=== PATIENT | male | born 1945 | race Caucasian/White ===

== ENCOUNTER 2023-03-25 13:18 | Emergency (ER) | payer MEDICARE, OTHER ==
[~2023-03-25] VITALS: Ht 177.8 cm; Wt 66.4 kg
[2023-03-25 15:11] VITALS: BP 171/87; PULSE 88; RESP 18; TEMP 97.1; O2SAT 99
[2023-03-25] MEDS ORDERED: CIPR-173 PO ×3 (15:26→15:28)
== END 2023-03-25 15:36 | disposition home or self-care (01) ==
LOC: ER 13:18
DX: T83.011A Breakdown (mechanical) of indwelling urethral catheter, initial encounter (principal); N39.0 Urinary tract infection, site not specified
CPT/HCPCS: 51702; 81002

== ENCOUNTER → 2023-03-25 | Outpatient (CLI) | payer MEDICARE, OTHER ==
[~2023-03-25] VITALS: Ht 177.8 cm; Wt 65.8 kg
[~2023-03-25] MED LIST: ADENOSINE 55 MG in GIVE UN-DILUTED 0 ML IV ONE; CIPR-173 PO
== END | disposition home or self-care (01) ==
LOC: XYW 11:24
PROVIDERS: ATTEND Student in an Organized Health Care Education/Training Program
DX: Z01.810 Encounter for preprocedural cardiovascular examination (principal)
CPT/HCPCS: 78452; 93017; A9500; J0153

== ENCOUNTER → 2023-04-04 | Outpatient (CLI) | payer MEDICARE, OTHER ==
[~2023-04-04] MED LIST changes: -ADENOSINE 55 MG in GIVE UN-DILUTED 0 ML IV ONE; +NIFE1TAB30 PO; +TAMS0.4C36 PO
== END | disposition home or self-care (01) ==
LOC: XYW 08:34
PROVIDERS: ATTEND Student in an Organized Health Care Education/Training Program
DX: Z01.810 Encounter for preprocedural cardiovascular examination (principal); R33.9 Retention of urine, unspecified; I11.9 Hypertensive heart disease without heart failure; I08.1 Rheumatic disorders of both mitral and tricuspid valves
CPT/HCPCS: 93306

== ENCOUNTER 2023-04-07 07:28 | Inpatient (IN) | payer MEDICARE, OTHER ==
[2023-04-05 14:56] LABS: Urine Bacteria FEW /hpf (None Seen); Urine Blood 3+ /uL (Negative); Urine Clarity Clear (Clear); Urine Color Yellow (Yellow); Urine Protein, UAD 1+ (Negative); Urine Specific Gravity 1.014 (1.001-1.035); Urine Urobilinogen Normal (Negative); Urine WBC 30 /hpf (0 - 3); Urine WBC Clumps PRESENT /hpf (None Seen); Urine pH 5.5 (5.0-8.0)
[2023-04-05 14:58] LABS: Basophils # (auto) 0 10 ^3/uL (0-0.2); Basophils % (auto) 0.6 % (0.0-2.0); Eosinophils # (auto) 0 10 ^3/uL (0-0.8); Eosinophils % (auto) 0.6 % (0.0-7.0); Hematocrit 38.3 % (41.0-53.0); Hemoglobin 12.5 g/dL (13.5-17.5); Lymphocytes # (auto) 0.7 10 ^3/uL (0.4-5.4); Lymphocytes % (auto) 17.6 % (10.0-50.0); Mean Corpuscular Hemoglobin 31.9 pg (28.0-32.0); Mean Corpuscular Hgb Conc. 32.7 g/dL (32.0-36.0); Mean Corpuscular Volume 97.6 fL (80.0-100.0); Monocytes # (auto) 0.3 10 ^3/uL (0-1.3); Monocytes % (auto) 7.2 % (0.0-12.0); Neutrophils # (auto) 2.9 10 ^3/uL (1.6-8.6); Nucleated Red Blood Cells % 0.1 %; Red Blood Cells 3.93 10^6/uL (4.5-5.90); Red Cell Distribution Width 15.7 % (11.8-14.3); White Blood Cell 3.9 10^3/uL (4.4-10.8)
[2023-04-05 15:04] LABS: INR 1.09 (0.9-1.15); Partial Thromboplastin Time 27.3 SEC (24.5-34.5); Prothrombin Time 11.4 sec (9.3-11.8)
[2023-04-05 15:23] LABS: Potassium 3.8 mmol/L (3.5-5.1)
[2023-04-05 15:31] LABS: Albumin 3.5 g/dL (3.4-5.0); BUN/Creatinine Ratio 13.7 (10.0-20.0); Bilirubin, Total 0.3 mg/dL (0.2-1.0); Calcium 8.7 mg/dL (8.5-10.1); Total Protein 6.8 g/dL (6.4-8.2)
[~2023-04-07] VITALS: Ht 172.7 cm; Wt 68.3 kg
[2023-04-07] MEDS ORDERED: CIPROFLOXACIN 400MG/200ML 200 ML IV ONE (07:41)
[2023-04-07] MEDS ORDERED: fentaNYL CITRATE 100 MCG/2 ML VL ONE (09:11)
[2023-04-07] MEDS ORDERED: MIDAZOLAM HCL 2MG/2ML 2ml VIAL (1mg/ml) ONE (09:12)
[2023-04-07] MEDS ORDERED: LIDOCAINE 2% (LOCAL ANESTH.) PF 5ml SDV ONE (09:13)
[2023-04-07] MEDS ORDERED: ONDANSETRON HCL 4 MG/2 ML VIAL ONE (09:13)
[2023-04-07] MEDS ORDERED: PROPOFOL 10 MG/ML 20 ML IV ONE (09:13)
[2023-04-07] MEDS ORDERED: ONDANSETRON HCL 4 MG/2 ML VIAL IV PRN (10:15)
[2023-04-07] MEDS ORDERED: HYDROmorphone HCL 2 MG/ML VL/or syr IV PRN ×2 (10:15)
[2023-04-07] MEDS ORDERED: GLYCOPYRROLATE 0.2 MG/ML 1ML VIAL ONE (10:36)
[2023-04-07] MEDS ORDERED: NEOSTIGMINE 1 MG/ML INJ (10mg/10ML VIAL) ONE (10:36)
[2023-04-07 10:55] VITALS: PULSE 66; RESP 18; O2SAT 100
[2023-04-07 11:30] VITALS: PULSE 55; RESP 11; O2SAT 94
[2023-04-07] MEDS ORDERED: NITROGLYCERIN 0.4 MG SL TAB SL PRN (12:30)
[2023-04-07] MEDS ORDERED: MORPHINE SULFATE INJ 2 MG/ml SYRG IV PRN (12:30)
[2023-04-07 13:30] VITALS: BP 124/64; PULSE 66; RESP 18; TEMP 97.6; O2SAT 95
[2023-04-07] MEDS ORDERED: ROCURONIUM 10MG/ML 10ML VIAL IV ONE (15:59)
[2023-04-07] MEDS ORDERED: SUCCINYLCHOLINE CHLORIDE 20 MG/ML 10ML VIAL IV ONE (15:59)
[2023-04-07 16:15] VITALS: BP 120/63; PULSE 68; RESP 20; TEMP 97.7; O2SAT 97
[2023-04-07 20:00] VITALS: RESP 18; O2SAT 100
[2023-04-07 21:46] VITALS: BP 134/59; PULSE 70; RESP 18; TEMP 97.9; O2SAT 100
[2023-04-08] VITALS (7 sets, daily range): BP systolic 124–160; BP diastolic 65–75; PULSE 58–64; RESP 16–99; TEMP 97.5–98.6; O2SAT 92–100
[2023-04-09] VITALS (7 sets, daily range): BP systolic 124–152; BP diastolic 61–75; PULSE 68–72; RESP 16–19; TEMP 97.6–98.6; O2SAT 95–100
[2023-04-10] VITALS (7 sets, daily range): BP systolic 121–139; BP diastolic 69–89; PULSE 67–76; RESP 16–20; TEMP 98.1–98.6; O2SAT 95–100
[2023-04-10 04:49] LABS: Basophils # (auto) 0 10 ^3/uL (0-0.2); Basophils % (auto) 0.4 % (0.0-2.0); Eosinophils # (auto) 0.1 10 ^3/uL (0-0.8); Eosinophils % (auto) 1.6 % (0.0-7.0); Hematocrit 33.9 % (41.0-53.0); Hemoglobin 11.1 g/dL (13.5-17.5); Lymphocytes # (auto) 0.9 10 ^3/uL (0.4-5.4); Lymphocytes % (auto) 17.9 % (10.0-50.0); Mean Corpuscular Hemoglobin 31.8 pg (28.0-32.0); Mean Corpuscular Hgb Conc. 32.8 g/dL (32.0-36.0); Mean Corpuscular Volume 96.8 fL (80.0-100.0); Monocytes # (auto) 0.5 10 ^3/uL (0-1.3); Monocytes % (auto) 9.5 % (0.0-12.0); Neutrophils # (auto) 3.7 10 ^3/uL (1.6-8.6); Neutrophils % (auto) 70.6 % (37.0-80.0); Nucleated Red Blood Cells % 0.1 %; Red Cell Distribution Width 15.5 % (11.8-14.3); White Blood Cell 5.2 10^3/uL (4.4-10.8)
[2023-04-10 04:58] LABS: Potassium 4.2 mmol/L (3.5-5.1)
[2023-04-10 05:04] LABS: Albumin 2.7 g/dL (3.4-5.0); BUN/Creatinine Ratio 17.2 (10.0-20.0); Bilirubin, Total 0.3 mg/dL (0.2-1.0); Calcium 8.5 mg/dL (8.5-10.1); Total Protein 5.5 g/dL (6.4-8.2)
[2023-04-10] MEDS ORDERED: LACTULOSE 20Gm/30ML SOLN PO ONE (18:30)
[2023-04-11 05:00] VITALS: BP 139/74; PULSE 84; RESP 17; TEMP 98.2; O2SAT 95
[2023-04-11 08:45] VITALS: BP_SYST 136; BP_SYST 140; BP_DIAS 69; BP_DIAS 77; PULSE 75; PULSE 76; RESP 19; RESP 20; TEMP 98.1; TEMP 98.3; O2SAT 97; O2SAT 98
[2023-04-11] MEDS ORDERED: NITROGLYCERIN 0.4 MG SL TAB SL PRN (10:45)
[2023-04-11] MEDS ORDERED: MORPHINE SULFATE INJ 2 MG/ml SYRG IV PRN (10:45)
[2023-04-11 13:00] VITALS: BP 143/65; PULSE 71; RESP 20; TEMP 97.9; O2SAT 96
== END 2023-04-11 16:00 | disposition home or self-care (01) | DRG 714 ==
LOC: SUR 07:28 → OVERFLOW 12:23 → UNDOADMOB 12:25 → OVERFLOW 13:25 → WEST WING 13:25 → INTOOBSV 04-11 10:45 → OBSVTOIN 04-11 10:45 → UNDODISIN 04-11 16:00
PROVIDERS: ADMIT Urology; ATTEND Urology
PROC: 0VB08ZX Excision of Prostate, Via Natural or Artificial Opening Endoscopic, Diagnostic (ICD-10-PCS; 2023-04-07)
PROC: 0VT08ZZ Resection of Prostate, Via Natural or Artificial Opening Endoscopic (ICD-10-PCS; principal; 2023-04-07 09:10)
DX: C61 Malignant neoplasm of prostate (principal); N40.1 Benign prostatic hyperplasia with lower urinary tract symptoms; R33.8 Other retention of urine; N20.0 Calculus of kidney; K86.9 Disease of pancreas, unspecified; N28.1 Cyst of kidney, acquired; Z85.46 Personal history of malignant neoplasm of prostate
CPT/HCPCS: 36415; 74176; 78306; 80053; 81001; 85025; 85610; 85730; 87086; G0378; J2001; J2250; J2405; J2704

== ENCOUNTER → 2023-09-06 | Outpatient (CLI) | payer MEDICARE, OTHER ==
[2023-09-06 14:02] LABS: Basophils # (auto) 0 10 ^3/uL (0-0.2); Basophils % (auto) 0.4 % (0.0-2.0); Eosinophils # (auto) 0.1 10 ^3/uL (0-0.8); Eosinophils % (auto) 2.3 % (0.0-7.0); Hematocrit 35.8 % (41.0-53.0); Hemoglobin 11.9 g/dL (13.5-17.5); Lymphocytes # (auto) 0.6 10 ^3/uL (0.4-5.4); Lymphocytes % (auto) 18.2 % (10.0-50.0); Mean Corpuscular Hemoglobin 32.5 pg (28.0-32.0); Mean Corpuscular Hgb Conc. 33.3 g/dL (32.0-36.0); Mean Corpuscular Volume 97.5 fL (80.0-100.0); Monocytes # (auto) 0.4 10 ^3/uL (0-1.3); Monocytes % (auto) 10.3 % (0.0-12.0); Neutrophils # (auto) 2.4 10 ^3/uL (1.6-8.6); Neutrophils % (auto) 68.8 % (37.0-80.0); Red Blood Cells 3.67 10^6/uL (4.5-5.90); Red Cell Distribution Width 14.7 % (11.8-14.3); White Blood Cell 3.5 10^3/uL (4.4-10.8)
[2023-09-06 14:22] LABS: Alanine Aminotransferase 12 U/L (7-40); Alkaline Phosphatase 68 U/L (46-116); Anion Gap 8 (5-15); Aspartate Aminotransferase 14 U/L (13-40); BUN/Creatinine Ratio 14.9 (10.0-20.0); Blood Urea Nitrogen 18 mg/dL (9-23); Calcium 9.7 mg/dL (8.5-10.1); Carbon Dioxide 23 mmol/L (20-30); Chloride 108 mmol/L (98-107); Glucose 91 mg/dL (74-106); LDL Cholesterol 114 mg/dL (< 100); Potassium 4.1 mmol/L (3.5-5.1); Sodium 139 mmol/L (136-145); Triglycerides 193 mg/dL (< 150)
[2023-09-06 14:23] LABS: Albumin 4.4 g/dL (3.2-4.8); Bilirubin, Total 0.5 mg/dL (0.2-1.0); Cholesterol 195 mg/dL (< 200); HDL Cholesterol 50 mg/dL (40-59)
== END | disposition home or self-care (01) ==
LOC: LAB 13:47
PROVIDERS: ATTEND Internal Medicine
DX: C25.9 Malignant neoplasm of pancreas, unspecified (principal); I10 Essential (primary) hypertension; Z79.899 Other long term (current) drug therapy
CPT/HCPCS: 36415; 80053; 80061; 83036; 85025

== ENCOUNTER → 2023-10-24 | Outpatient (CLI) | payer MEDICARE, OTHER ==
[2023-10-24 10:40] LABS: Basophils # (auto) 0 10 ^3/uL (0-0.2); Basophils % (auto) 0.3 % (0.0-2.0); Eosinophils # (auto) 0.1 10 ^3/uL (0-0.8); Eosinophils % (auto) 2.2 % (0.0-7.0); Hematocrit 35.7 % (41.0-53.0); Hemoglobin 11.8 g/dL (13.5-17.5); Lymphocytes # (auto) 0.6 10 ^3/uL (0.4-5.4); Lymphocytes % (auto) 19.6 % (10.0-50.0); Mean Corpuscular Hemoglobin 33.2 pg (28.0-32.0); Mean Corpuscular Hgb Conc. 33.2 g/dL (32.0-36.0); Mean Corpuscular Volume 100.2 fL (80.0-100.0); Monocytes # (auto) 0.4 10 ^3/uL (0-1.3); Monocytes % (auto) 11.5 % (0.0-12.0); Neutrophils # (auto) 2.2 10 ^3/uL (1.6-8.6); Neutrophils % (auto) 66.4 % (37.0-80.0); Nucleated Red Blood Cells % 0.1 %; Red Blood Cells 3.56 10^6/uL (4.5-5.90); Red Cell Distribution Width 15.3 % (11.8-14.3); White Blood Cell 3.3 10^3/uL (4.4-10.8)
== END | disposition home or self-care (01) ==
LOC: LAB 10:06
PROVIDERS: ATTEND Internal Medicine
DX: C61 Malignant neoplasm of prostate (principal); D64.9 Anemia, unspecified; I10 Essential (primary) hypertension; Z79.899 Other long term (current) drug therapy
CPT/HCPCS: 36415; 82306; 82607; 85025

== ENCOUNTER → 2023-12-23 | Outpatient (CLI) | payer MEDICARE, OTHER ==
[2023-12-23 14:07] LABS: Chloride 112 mmol/L (98-107); Potassium 4.4 mmol/L (3.5-5.1); Sodium 142 mmol/L (136-145)
[2023-12-23 14:08] LABS: Anion Gap 6 (5-15); Carbon Dioxide 24 mmol/L (20-30)
[2023-12-23 14:09] LABS: Calcium 10.1 mg/dL (8.7-10.4)
[2023-12-23 14:13] LABS: Glucose 98 mg/dL (74-106)
[2023-12-23 14:55] LABS: BUN/Creatinine Ratio 19.6 (10.0-20.0); Blood Urea Nitrogen 28 mg/dL (9-23)
== END | disposition home or self-care (01) ==
LOC: LAB 13:28
PROVIDERS: ATTEND Internal Medicine
DX: E55.9 Vitamin D deficiency, unspecified (principal); E53.8 Deficiency of other specified B group vitamins
CPT/HCPCS: 36415; 80048

== ENCOUNTER → 2024-02-27 | Outpatient (CLI) | payer MEDICARE, OTHER ==
[2024-02-27 13:54] LABS: Basophils # (auto) 0 10 ^3/uL (0-0.2); Basophils % (auto) 0.5 % (0.0-2.0); Eosinophils # (auto) 0.1 10 ^3/uL (0-0.8); Eosinophils % (auto) 1.6 % (0.0-7.0); Hematocrit 36.1 % (41.0-53.0); Hemoglobin 11.9 g/dL (13.5-17.5); Lymphocytes # (auto) 0.8 10 ^3/uL (0.4-5.4); Lymphocytes % (auto) 18.7 % (10.0-50.0); Mean Corpuscular Hemoglobin 32.7 pg (28.0-32.0); Mean Corpuscular Hgb Conc. 33.1 g/dL (32.0-36.0); Mean Corpuscular Volume 98.7 fL (80.0-100.0); Monocytes # (auto) 0.4 10 ^3/uL (0-1.3); Monocytes % (auto) 9.4 % (0.0-12.0); Neutrophils % (auto) 69.8 % (37.0-80.0); Nucleated Red Blood Cells % 0.1 %; Red Blood Cells 3.66 10^6/uL (4.5-5.90); Red Cell Distribution Width 15.1 % (11.8-14.3); White Blood Cell 4.3 10^3/uL (4.4-10.8)
[2024-02-27 15:32] LABS: Triglycerides 244 mg/dL (< 150)
[2024-02-27 15:33] LABS: LDL Cholesterol 156 mg/dL (< 100)
[2024-02-27 15:34] LABS: Cholesterol 243 mg/dL (< 200); HDL Cholesterol 44 mg/dL (40-59)
[2024-02-27 15:37] LABS: Folate (Folic Acid) 12.22 ng/mL (>5.38)
== END | disposition home or self-care (01) ==
LOC: LAB 13:35
PROVIDERS: ATTEND Internal Medicine
DX: E55.9 Vitamin D deficiency, unspecified (principal); E53.8 Deficiency of other specified B group vitamins; C61 Malignant neoplasm of prostate; I10 Essential (primary) hypertension
CPT/HCPCS: 36415; 80061; 82306; 82607; 82746; 85025

== ENCOUNTER → 2024-04-10 | Outpatient (CLI) | payer MEDICARE, OTHER ==
[~2024-04-10] MED LIST changes: -TAMS0.4C36 PO; +TAMS0.4C39 PO
[2024-04-10 13:02] LABS: Albumin 4.4 g/dL (3.2-4.8); Bilirubin, Direct 0.1 mg/dL (<0.3); Bilirubin, Total 0.3 mg/dL (0.2-1.0); Total Protein 7.1 g/dL (5.7-8.2)
== END | disposition home or self-care (01) ==
LOC: LAB 12:21
PROVIDERS: ATTEND Internal Medicine
DX: E78.5 Hyperlipidemia, unspecified (principal)
CPT/HCPCS: 36415; 80076

== ENCOUNTER 2025-02-04 14:55 | Emergency (ER) | payer MEDICARE, OTHER ==
[~2025-02-04] VITALS: Ht 177.8 cm; Wt 77.2 kg
--- NOTE | 2025-02-04 15:30 | DVH ---
CHEST RADIOGRAPH Indication: aloc Technique: Single frontal view of the chest was obtained COMPARISON: None FINDINGS: Lines and Tubes: None Lungs: Clear Pleura: No effusion. No pneumothorax. Cardiomediastinal contours: Unremarkable Bones: Unremarkable IMPRESSION: No acute disease.
[2025-02-04 15:31] VITALS: PULSE 82; RESP 19; O2SAT 97
--- NOTE | 2025-02-04 15:42 | DVH ---
EXAM: CT STROKE CTH HISTORY: aloc COMPARISON: None TECHNIQUE: Axial images of the head were obtained and reformatted in coronal and sagittal planes. All CT scans at this medical facility are performed using dose modulation techniques as appropriate t o a performed exam including the following: Automated exposure control was utilized; adjustment of th e MA and/or KV according to patient size; and use of iterative reconstruction technique. CT Dose: CTDI volume is 52.43 mGy. Dose-length product is 928.47 mGy*cm FINDINGS: There is no evidence of acute intracranial hemorrhage, mass, mass effect midline shift. There is no h ydrocephalus or extra-axial fluid collection. There are patchy chronic microvascular ischemic changes in the supratentorial white matter. There are small chronic lacunar infarcts in the bilateral basal ganglia. Savage-white matter differentiation otherwise appears maintained. Complete opacification of the right maxillary sinus. There is mucosal thickening throughout the jessica ining paranasal sinuses. Mastoid air cells are clear. The calvarium is intact. IMPRESSION: 1. No acute intracranial process. HS:Y
[2025-02-04] MEDS: IOHEXOL 350 MG/ML 100ML IJ ONE (15:56)
--- NOTE | 2025-02-04 16:10 | DVH ---
EXAM: CT ANGIO HEAD/NECK DATE OF SERVICE: 02/04/2025 03:14 PM ORDERING PHYSICIAN: LEW NELSON REASON FOR EXAM: ams TECHNIQUE: CTA of the brain and neck was performed after the administration of contrast . Axial imag es of the head and neck are obtained. Coronal and sagittal images were then reformatted for review. M IP reformats were obtained and reviewed. COMPARISON: None FINDINGS: FINDINGS: The right common carotid artery demonstrates no high-grade stenosis. Right internal carotid artery demonstrates no high-grade stenosis. Right middle cerebral artery demonstrates mild stenosis of the M1 segment, less than 50% stenosis. The right anterior cerebral artery demonstrates no high-grade stenosis. The left common carotid artery demonstrates no high-grade stenosis. Left internal carotid artery demonstrates no high-grade stenosis. The left middle cerebral artery demonstrates mild stenosis of the M1 segment, less than 50% stenosis. The left anterior cerebral artery demonstrates no high-grade stenosis. The right vertebral artery demonstrates no high-grade stenosis. The left vertebral artery demonstrates no high-grade stenosis. Basilar artery demonstrates no high-grade stenosis. The bilateral posterior cerebral arteries demonstrate no high-grade stenosis. Right upper lobe pulmonary airspace consolidation/ nodular disease measuring up to 11 mm. Ethmoid, bilateral maxillary and sphenoid sinus disease most pronounced within the right maxillary si nus. Hyperdense contents may represent inspissated secretions, fungal etiologies. Moderate cervical degenerative disc disease. IMPRESSION: Less than 50% stenoses of the bilateral middle cerebral artery M1 segments. Right upper lobe pulmonary consolidation/nodular airspace disease with nodules measuring up to 11 mm. Follow-up to resolution to exclude malignancy/ metastatic disease. Paranasal sinus disease.
[2025-02-04 16:28] LABS: Alanine Aminotransferase 10 U/L (7-40); Albumin 3.7 g/dL (3.2-4.8); Alkaline Phosphatase 89 U/L (46-116); Anion Gap 17 (5-15); BUN/Creatinine Ratio 17.5 (10.0-20.0); Bilirubin, Total 0.7 mg/dL (0.2-1.0); Potassium 4.5 mmol/L (3.5-5.1); Total Protein 6.3 g/dL (5.7-8.2)
[2025-02-04 16:31] LABS: Aspartate Aminotransferase 36 U/L (<34); Blood Urea Nitrogen 31 mg/dL (9-23); Carbon Dioxide 14 mmol/L (20-31); Chloride 114 mmol/L (98-107); Glucose 152 mg/dL (74-106); Magnesium 2.8 mg/dL (1.6-2.6); Sodium 145 mmol/L (136-145)
--- NOTE | 2025-02-04 16:48 | BSKYNEURO ---
[facility] Note # Demographics Consult Type: Acute Stroke Level 1 (0-4.5 hrs) Patient Location: Emergency Room First Name: uli Last Name: caesar Date of : 1945 Age: 79 Gender: Male Facility: [facility] Time of Initial Page (): 02/04/2025 15:06 Time of Return Call (): 02/04/2025 15:07 # HPI History: LKN- 4 days ago. Patient is coming to the ER for confusion started four days ago. He was noted to have slurred speech and tried shared weakness while in the ER. # Scores Time of exam and NIHSS (): 02/04/2025 15:36 Level of Consciousness 1a: [0] = Alert; keenly responsive LOC Questions 1b: [1] = Answers one correctly LOC Commands 1c: [0] = Performs both tasks correctly Best Gaze 2: [0] = Normal Visual 3: [0] = No visual loss Facial Palsy 4: [0] = Normal symmetrical movements Motor Arm Left 5a: [1] = Drift Motor Arm Right 5b: [1] = Drift Motor Leg Left 6a: [0] = No drift Motor Leg Right 6b: [2] = Some effort against gravity Limb Ataxia 7: [0] = Absent Sensory 8: [0] = Normal Best Language 9: [0] = No aphasia Dysarthria 10: [1] = [id number] dysarthria Extinction and Inattention 11: [0] = No abnormality NIHSS Total: 6 # Assessment Impression: - Altered Mental Status - Stroke Mimic Patient looks encephalopathic; likely metabolic/infectious. If no other obvious cause of encephalopathy and patient is not improving, will need MRI brain w/o contrast and EEG # Plan Thrombolytic/Intervention: NOT IV Thrombolysis or IA Intervention candidate Thrombolytic Exclusion: > 4.5 hours Intraarterial Exclusion: - no large vessel occlusion (LVO) Thrombolytic/Intraarterial Exclusion: - IV thrombolytic and IA intervention considered but not recommended as this patient's symptoms are not clinically consistent with an assumed diagnosis of stroke Labs: - Ammonia - urine drug screen - ua - CBC - comprehensive metabolic panel - ESR - ABG Imaging: (urgency: routine): - MRI Brain without contrast Diagnostic Test: - EEG Other: - If patient has any neurological deterioration please call me back immediately - I have discussed my recommendations with the referring provider - would not pursue stroke work-up if MRI is negative - telemetry monitoring Disposition: admit # Logistics Attestation of consult completion: The patient is located at: [facility]. Facility staff participated in the visit. I performed this telemedicine visit from my offsite office utilizing interactive 2 way audio and visual telecommunication technology. Total time spent in telemedicine encounter: I spent 20 minutes reviewing clinical data and/or imaging, obtaining history, examining the patient, communicating with the onsite care team, and in preparation of this report. # Demographics First Name: uli Last Name: caesar Facility: [facility] Yes PILO LEE MD Feb 04, 2025 16:48
[2025-02-04] MEDS: SODIUM CHLORIDE 0.9% 1,000 ML IV ONE (17:08)
[2025-02-04] MEDS: VANCOMYCIN 1GM/200ML PM 200 ML IV ONE (17:11)
[2025-02-04] MEDS: CEFEPIME 2GM/50ML NS 50 ML IV ONE (18:17)
[2025-02-04 19:19] LABS: Lactic Acid w/Reflex 4.4 mmol/L (0.4-2.0)
[2025-02-04 19:34] LABS: Hematocrit 13.3 % (41.0-53.0); Mean Corpuscular Hemoglobin 31.1 pg (28.0-32.0); Mean Corpuscular Hgb Conc. 29.2 g/dL (32.0-36.0); Mean Corpuscular Volume 106.2 fL (80.0-100.0); Red Blood Cells 1.25 10^6/uL (4.5-5.90); Red Cell Distribution Width 18.3 % (11.8-14.3)
[2025-02-04 19:39] VITALS: PULSE 75; O2SAT 100
[2025-02-04 19:42] LABS: Platelet Count (auto) 8 10^3/uL (140-450)
[2025-02-04 19:44] LABS: Hemoglobin 3.9 g/dL (13.5-17.5)
[2025-02-04 19:46] LABS: Basophils % (manual) 0 (0.0-2.0); Eosinophils % (manual) 0 (0-7); Metamyelocytes % 0; Myelocytes % 0; Promyelocytes % 0
--- NOTE | 2025-02-04 20:54 | DVHINCON2 ---
Date of service: Feb 04, [address] Crawford Reason for Consultation Slurred speech History of Present Illness Mr. Griggs is a 79 years old gentleman with a history of hypertension, BPH, prostate cancer, left kidney cancer, nephrectomy, pancreatic mass lesion, hematuria, the patient was brought to the [facility] on 02/04/2025 with a chief company of general weakness, altered mental status. 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 After long time spent with her, I have obtained the following information Apparently, his problem started about two weeks ago, when he started to have bloody urine which stopped about six days before He also complained of thirsty at home, he complaint the room was heat, he had poor appetite, especially he only ate minimal amount of food in the lasts a few days. He used to drink a lot of water but not in the last three days He had a lot of diarrhea at home, he had dizziness/lightheadedness when he was off bed Today his noticed purplish in the bilateral toes His relates the patient was not mentally altered at home, but he did not listen to/was not cooperative with her when she advised him to seek medical attention. [facility] consultation, 02/04/2025: The patient was not candidate of IV thrombolysis or IA interventional treatment Dr. Stuart Hodge is his urologist [phone] WBC/HB/PLT/MCV, 02/04/2025: 81/3.9/8/106.2 PT/INR/PTT, 02/04/2025: HCO3, 02/04/2025:14 Anion gap, 02/04/2025: 17 Lactic acid, 02/04/2025: 4.4, 2.9 BUN/CR, 02/04/2025: 31/1.77 TBI/AST/ALT/AP, 02/04/2025: 0.7/36/10/89 Troponin one high sensitivity, 02/04/2025: 218 TG/HDL/LDL/HDL, 02/2024: 244/2043/156/44 CT head, 02/04/2025: No acute intracranial process CTA head, neck, 02/04/2025: Less than 50% stenoses of the bilateral middle cerebral artery M1 segments. Right upper lobe pulmonary consolidation/nodular airspace disease with nodules measuring up to 11 mm. Follow-up to resolution to exclude malignancy/ metastatic disease. Past Medical History Hypertension, BPH, prostate cancer, left kidney cancer status post nephrectomy, pancreatic mass lesion, hematuria Past Surgical History Left Nephrectomy Family History: FH: brain tumor G8 FATHER Family History is not aware of his family history, the chart mentioned brain tumor Social History He used to chew tobacco, but no history of drug or alcohol abuse Allergies: Coded Allergies: NO KNOWN ALLERGIES (Unverified , 03/25/23) Home Meds Active Scripts Ciprofloxacin Hcl (Cipro) 500 Mg Tab, 1 TAB PO BID, #20 TAB Prov:LISA CLANCY 03/25/23 Reported Medications Nifedipine (Nifedipine Er) 60 Mg Tab, 60 MG PO DAILY, TAB 04/06/23 Tamsulosin Hcl (Tamsulosin Hcl) 0.4 Mg Cap, 0.4 MG PO DAILY, CAP 04/06/23 Review of Systems As above, the other systems are negative Vital Signs Vital Signs Date Time Temp Pulse Resp B/P (MAP) Pulse Ox O2 Delivery O2 Flow Rate FiO2 02/04/25 19:45 97.8 75 12 119/57 (77) 100 97.8 02/04/25 19:39 Nasal Cannula* 2 28 Physical Exam GENERAL EXAM: General: the patient is well developed and nourished. No acute distress. Very pale HEENT: Normocephalic, neck is supple, no carotid bruits. No mass. RESPIRATORY: Normal respiratory effort with symmetrical lung expansion. Lungs clear to auscultation. CARDIOVASCULAR: Regular rate and rhythm with no murmurs. S1, S2. ABDOMEN: Soft, nontender, normal bowel sound MUSCULOSKELETAL EXAM: Purplish/dark depigmentation in bilateral distal feet NEUROLOGICAL: MENTAL STATUS: He is awake, oriented x2, able to follow a little bit SPEECH, LANGUAGE, HIGHER CORTICAL FUNCTION: no aphasia but his speech is soft and weak CRANIAL NERVES: #2: Intact visual agustin to confrontation. #3,4,6: Pupils are equal, round and reactive. EOMs full and conjugate. No nystagmus. #5: Facial sensation intact in all three divisions bilaterally. Mandibular strength intact. #7: Facial muscles symmetrical and strength intact. #8: Hearing grossly normal to voice. #9,10: Deferred #11: Deferred but he is able to move the neck from [id number] #12: Deferred SENSATION: Sensation to touch and pinprick is okay MOTOR: Normal tone in the upper and lower extremity. Normal muscle bulk. No fasciculations. No abnormal movements or posturing. He moves the arm than leg a little bit REFLEXES: Deep tendon reflexes are symmetrical. No pathological reflexes. CEREBELLAR/COORDINATION: Deferred GAIT/STATION: deferred. Labs/Diagnostic Data Labs Test 02/04/25 19:17 02/04/25 18:33 02/04/25 15:54 Range/Units White Blood Count 81.0 *H 4.4-10.8 10^3/uL Red Blood Count 1.25 L 4.5-5.90 10^6/uL Hemoglobin 3.9 *L 13.5-17.5 g/dL Hematocrit 13.3 L 41.0-53.0 % Mean Corpuscular Volume 106.2 H 80.0-100.0 fL Mean Corpuscular Hemoglobin 31.1 28.0-32.0 pg Mean Corpuscular Hemoglobin Concent 29.2 L 32.0-36.0 g/dL Red Cell Distribution Width 18.3 H 11.8-14.3 % Platelet Count 8 *L 140-450 10^3/uL Mean Platelet Volume 10.5 6.9-10.8 fL Neutrophils (%) (Auto) 37.0-80.0 % Lymphocytes (%) (Auto) 10.0-50.0 % Monocytes (%) (Auto) 0.0-12.0 % Basophils (%) (Auto) 0.0-2.0 % Neutrophils # (Auto) 1.6-8.6 10 ^3/uL Lymphocytes # (Auto) 0.4-5.4 10 ^3/uL Monocytes # (Auto) 0-1.3 10 ^3/uL Lactic Acid Level 2.9 *H 0.4-2.0 mmol/L B-Type Natriuretic Peptide 307.37 0-100 pg/mL Troponin I High Sensitivity 2185 *H </=54 ng/L Sodium Level 145 136-145 mmol/L Potassium Level 4.5 3.5-5.1 mmol/L Chloride Level 114 H 98-107 mmol/L Carbon Dioxide Level 14 L 20-31 mmol/L Anion Gap 17 H 5-15 Blood Urea Nitrogen 31 H 9-23 mg/dL Creatinine 1.77 H 0.700-1.30 mg/dL Glomerular Filtration Rate Calc 39 >90 mL/min BUN/Creatinine Ratio 17.5 10.0-20.0 Serum Glucose 152 H 74-106 mg/dL Calcium Level 8.0 L 8.7-10.4 mg/dL Magnesium Level 2.8 H 1.6-2.6 mg/dL Total Bilirubin 0.7 0.2-1.0 mg/dL Aspartate Amino Transferase (AST) 36 H <34 U/L Alanine Aminotransferase (ALT) 10 7-40 U/L Alkaline Phosphatase 89 46-116 U/L Total Protein 6.3 5.7-8.2 g/dL Albumin 3.7 3.2-4.8 g/dL Assessment Altered mental status Metabolic encephalopathy Toxic encephalopathy Lactic acidosis, metabolic acidosis Sepsis, septic shock Severe leukocytosis, Sepsis Other etiology Severe macrocytic anemia Severe thrombocytopenia Diarrhea, dizziness, ? Dehydration Acute kidney failure History of kidney cancer, prostate cancer History of pancreatic mass lesion Purplish in the bilateral feet, ? Poor peripheral circulation, ? Peripheral arterial disease Plan/Recommendation Monitoring Supportive treatment Follow-up labs Urinalysis Urine culture Blood culture Iron panel Vitamin B12, folic acid, TSH Oxygen IV antibiotics Type and screening EEG Arterial Doppler to the lower extremities MRI brain scan Infectious disease Re: ? Sepsis Urology consultation Re: Prostate cancer, BPH, hematuria, history of kidney cancer Hematology/Oncology consultation Re: Sepsis, severe anemia, CBS thrombocytopenia, prostatic cancer, kidney cancer, pancreatic mass GI consultation Re: Diarrhea, anemia, rule out GI bleeding Nephrology consultation Re: Kidney failure More recommendation per clinical course Condition: Critical Prognosis: Poor Critical care time spent is 60 minutes This medical document was created using an electronic medical record system with [employer] dictation system. Although this document has been carefully reviewed, there may still be some phonetic and typographical errors. These areas are purely typographical due to imperfections of the software programs, and do not reflect any compromise in the patient's medical care. Plan discussed with: Spouse, Other REGINA LEVIN MD Feb 04, 2025 20:54
--- NOTE | 2025-02-04 20:56 | ED.PDOC ---
History of Present Illness HPI Comments 79-year-old male presents to the emergency department with generalized weakness and some confusion. EMS noted that there might be some blood in his stool Chief Complaint: General Weakness Time Seen by MD: 20:09 Primary Care Provider: UNKNOWN Allergies: Coded Allergies: NO KNOWN ALLERGIES (Unverified , 03/25/23) Home Meds Active Scripts Ciprofloxacin Hcl (Cipro) 500 Mg Tab, 1 TAB PO BID, #20 TAB Prov:LISA CLANCY 03/25/23 Reported Medications Nifedipine (Nifedipine Er) 60 Mg Tab, 60 MG PO DAILY, TAB 04/06/23 Tamsulosin Hcl (Tamsulosin Hcl) 0.4 Mg Cap, 0.4 MG PO DAILY, CAP 04/06/23 Information Source: Patient, Emergency Med Personnel Mode of Arrival: EMS Severity: Severe Timing: Days Duration: Since onset Past Medical History PAST MEDICAL HISTORY: Unknown, Pt Confused Surgical History: Unknown, Pt Confused Family History Family History: Reviewed,noncontributory to illness Social History Smoker: Non-Smoker Alcohol: Denies ETOH Use Drugs: Denies Drug Use Lives In: Home Constitutional: reports: fatigue, weakness Unable to Obtain due to: Altered Mental Status Physical Exam Exam Comments elderly , pale, appears ill General Appearance: Cachectic, Thin HEENT: Normal ENT Inspection, Pharynx Normal, TMs Normal Neck: Full Range of Motion, Non-Tender, Normal, Normal Inspection Respiratory: Chest Non-Tender, Lungs Clear, No Accessory Muscle Use, No Respiratory Distress, Normal Breath Sounds Cardiovascular: No Edema, No JVD, No Murmur, No Gallop, Normal Peripheral Pulses, Regular Rate/Rhythm Breast Exam: Deferred Gastrointestinal: No Organomegaly, Non Tender, No Pulsatile Mass, Normal Bowel Sounds, Soft Genitalia: Deferred Pelvic: Deferred Rectal: Blood streaked stool, Normal rectal tone Extremities: No calf tenderness, Normal capillary refill, Normal inspection, Normal range of motion, Non-tender, No pedal edema Musculoskeletal : Apperance: Normal Neurologic: Alert, religious studies professor II-XII nml as Tested, No Motor Deficits, Normal Affect, Normal Mood, No Sensory Deficits Cerebellar Function: Normal Reflexes: Normal Skin: Dry, Pallor Lymphatic: No Adenopathy Was a procedure done? Was a procedure done?: No Differential Dx Considerations may include: Differential diagnosis includes but is not limited to: coronary ischemia, dehydration, sepsis, electrolyte abnormality, symptomatic anemia, hypovolemia and others X-Ray, Labs, Meds, VS Vital Signs Date Time Temp Pulse Resp B/P (MAP) Pulse Ox O2 Delivery O2 Flow Rate FiO2 02/04/25 19:45 97.8 75 12 119/57 (77) 100 97.8 02/04/25 19:39 75 100 Nasal Cannula* 2 28 02/04/25 18:00 67 17 124/54 (77) 100 02/04/25 16:05 83 14 102/52 (69) 90 02/04/25 16:00 75 02/04/25 15:31 97.8 82 19 117/39 (65) 97 97.8 02/04/25 15:31 82 19 97 Room Air* 0 21 02/04/25 15:03 77 02/04/25 14:59 99.3 82 22 115/59 (77) 96 99.3 Lab Test 02/04/25 19:17 02/04/25 18:33 02/04/25 17:17 02/04/25 15:54 Range/Units White Blood Count 81.0 *H 4.4-10.8 10^3/uL Red Blood Count 1.25 L 4.5-5.90 10^6/uL Hemoglobin 3.9 *L 13.5-17.5 g/dL Hematocrit 13.3 L 41.0-53.0 % Mean Corpuscular Volume 106.2 H 80.0-100.0 fL Mean Corpuscular Hemoglobin 31.1 28.0-32.0 pg Mean Corpuscular Hemoglobin Concent 29.2 L 32.0-36.0 g/dL Red Cell Distribution Width 18.3 H 11.8-14.3 % Platelet Count 8 *L 140-450 10^3/uL Mean Platelet Volume 10.5 6.9-10.8 fL Neutrophils (%) (Auto) 37.0-80.0 % Lymphocytes (%) (Auto) 10.0-50.0 % Monocytes (%) (Auto) 0.0-12.0 % Basophils (%) (Auto) 0.0-2.0 % Neutrophils # (Auto) 1.6-8.6 10 ^3/uL Lymphocytes # (Auto) 0.4-5.4 10 ^3/uL Monocytes # (Auto) 0-1.3 10 ^3/uL Differential Total Cells Counted Pending Neutrophils % (Manual) Pending Band Neutrophils % (Manual) Pending Lymphocytes % (Manual) Pending Monocytes % (Manual) Pending Eosinophils % (Manual) Pending Basophils % (Manual) Pending Metamyelocytes % (manual) Pending Myelocytes % (Manual) Pending Promyelocytes % (Manual) Pending Blast Cells % (Manual) Pending Reactive Lymphocytes Pending Platelet Estimate Pending Prothrombin Time Pending Prothrombin Time INR Pending Activated Partial Thromboplast Time Pending Lactic Acid Level 2.9 *H 4.4 *H 0.4-2.0 mmol/L B-Type Natriuretic Peptide 307.37 0-100 pg/mL Troponin I High Sensitivity 2185 *H 2007 *H 9 *H </=54 ng/L Sodium Level 145 136-145 mmol/L Potassium Level 4.5 3.5-5.1 mmol/L Chloride Level 114 H 98-107 mmol/L Carbon Dioxide Level 14 L 20-31 mmol/L Anion Gap 17 H 5-15 Blood Urea Nitrogen 31 H 9-23 mg/dL Creatinine 1.77 H 0.700-1.30 mg/dL Glomerular Filtration Rate Calc 39 >90 mL/min BUN/Creatinine Ratio 17.5 10.0-20.0 Serum Glucose 152 H 74-106 mg/dL Calcium Level 8.0 L 8.7-10.4 mg/dL Magnesium Level 2.8 H 1.6-2.6 mg/dL Total Bilirubin 0.7 0.2-1.0 mg/dL Aspartate Amino Transferase (AST) 36 H <34 U/L Alanine Aminotransferase (ALT) 10 7-40 U/L Alkaline Phosphatase 89 46-116 U/L Total Protein 6.3 5.7-8.2 g/dL Albumin 3.7 3.2-4.8 g/dL Current Medications Medications (Trade) Dose Ordered Sig/John Route Start Time Stop Time Status Last Admin Cefepime HCl 50 ml @ 50 mls/hr ONCE ONCE IV 02/04/25 17:00 02/04/25 17:59 DC 02/04/25 18:17 Vancomycin HCl 200 ml @ 200 mls/hr ONCE ONCE IV 02/04/25 17:00 02/04/25 17:59 DC 02/04/25 17:11 Sodium Chloride 1,000 ml @ 1,000 mls/hr Q1H ONCE IV 02/04/25 17:00 02/04/25 17:59 DC 02/04/25 17:08 Time of 1ST Reevaluation: 20:47 Reevaluation 1ST: Unchanged Patient Education/Counseling: Diagnosis, Treatment Family Education/Counseling: No Family Present SEPSIS Sepsis Screen Date sepsis recognized/suspect: Feb 04, 2025 Time Sepsis recognized/suspect: 2029 Recent Procedure: No On Antibiotic Therapy: No Respiratory Rate >20: No Heart Rate >90: No Temp<36 C (96.8 F) or >38.3 C: No SBP <90 or MAP <65 mmHG: No New Acute Mental Status Change: Yes Is the patient on CPAP, BIPAP,: No Orders/Vitals/Labs Physician Orders Stroke Assessment (02/04/25 15:02) Vital Signs .PER UNIT PROTOCOL (02/04/25 15:02) Station Usher (02/04/25 15:02) Accurate Weight In Kg (02/04/25 15:02) Electrocardigram (02/04/25 15:02) Accucheck (02/04/25 15:02) Complete Blood Count (02/04/25 15:02) Partial Thromboplastin Time (02/04/25 15:02) Prothrombin Time W/ Inr (02/04/25 15:02) Ct Head Cva (02/04/25 15:02) Chest Xray 1 View (02/04/25 15:02) * Neurology Consult (02/04/25 15:02) 2 Large Bore Ivs (20mg Or Larg (02/04/25 15:02) Nursing Dysphagia Screen (02/04/25 15:02) Neuro Checks Per Unit Protocol (02/04/25 15:02) Accurate Weight In Kg (02/04/25 15:03) Electrocardigram (02/04/25 15:03) Accucheck (02/04/25 15:03) Angio Head/Neck (02/04/25 15:03) * Neurology Consult (02/04/25 15:03) 2 Large Bore Ivs (20mg Or Larg (02/04/25 15:03) Nursing Dysphagia Screen (02/04/25 15:03) Neuro Checks Per Unit Protocol (02/04/25 15:03) Electrocardigram (02/04/25 16:03) Electrocardigram (02/04/25 18:03) Urinalysis (02/04/25 17:28) Drug Screen (02/04/25 17:28) Blood Culture (02/04/25 17:52) Manual Differential (02/04/25 19:17) Packedcell-Noactive Bleeding (02/04/25 20:36) Pheresis Platelets (02/04/25 20:36) Type And Screen (02/04/25 20:36) Administer Blood Products UD (02/04/25 20:36) Iron Panel (02/04/25 20:36) Reticulocyte Count (02/04/25 20:36) Vital Signs Date Time Temp Pulse Resp B/P (MAP) Pulse Ox O2 Delivery O2 Flow Rate FiO2 02/04/25 19:45 97.8 75 12 119/57 (77) 100 97.8 02/04/25 19:39 75 100 Nasal Cannula* 2 28 02/04/25 18:00 67 17 124/54 (77) 100 02/04/25 16:05 83 14 102/52 (69) 90 02/04/25 16:00 75 02/04/25 15:31 97.8 82 19 117/39 (65) 97 97.8 02/04/25 15:31 82 19 97 Room Air* 0 21 02/04/25 15:03 77 02/04/25 14:59 99.3 82 22 115/59 (77) 96 99.3 Laboratory Tests Test 02/04/25 18:33 02/04/25 19:17 Lactic Acid Level 4.4 mmol/L (0.4-2.0) *H 2.9 mmol/L (0.4-2.0) *H White Blood Count 81.0 10^3/uL (4.4-10.8) *H Medications Medications Dose Ordered Sig/John Route Start Time Stop Time Status Last Admin Dose Admin Cefepime HCl 50 ml @ 50 mls/hr ONCE ONCE IV 02/04/25 17:00 02/04/25 17:59 DC 02/04/25 18:17 Sodium Chloride 1,000 ml @ 1,000 mls/hr Q1H ONCE IV 02/04/25 17:00 02/04/25 17:59 DC 02/04/25 17:08 Vancomycin HCl 200 ml @ 200 mls/hr ONCE ONCE IV 02/04/25 17:00 02/04/25 17:59 DC 02/04/25 17:11 Departure 1 Departure Time of Disposition: 20:47 Impression: Primary Impression: Hypercoagulable state Additional Impressions: Lymphocytosis Anemia Thrombocytopenia Dehydration Diastolic heart failure secondary to coronary artery disease Acute renal injury GI bleed Disposition: ADMITTED INPATIENT Condition: Critical Discharged With: Self Comments 79-year-old Male with Confusion, Weakness, and Suspected GI Bleed Chief Complaint: Confusion, generalized weakness, and possible streaks of blood in stool. History of Present Illness: Patient is a 79-year-old male who presented to the Emergency Department via ambulance with confusion, generalized weakness, and reported possible streaks of blood in his stool. The patient appears acutely ill with decreased mentation. He is able to respond to voice but is confused. No additional history is available at this time due to the patient's altered mental status. Review of Systems: Limited due to patient's altered mental status. Constitutional: Generalized weakness, appears ill. Neurological: Confusion, decreased mentation. Gastrointestinal: Possible hematochezia. Physical Exam: General: Patient appears pale and acutely ill. Neurological: Decreased mentation. Patient is able to respond to voice but is confused. Remainder of physical exam details not provided in civil design technician. Lab Results: CBC: - WBC: 81,000/?L (markedly elevated) - Hemoglobin: 4 g/dL (severely decreased) - Hematocrit: 13% (severely decreased) - Platelets: 8,000/?L (critically low) Chemistry: - BUN: 31 mg/dL (elevated) - Creatinine: 1.8 mg/dL (elevated) - Chloride: 114 mEq/L (elevated) - Glucose: 152 mg/dL (elevated) - Lactate: 2.9 mmol/L (elevated) Cardiac: - Troponin: Initially 2,185 ng/L, repeat 2,008 ng/L (elevated but trending down) Imaging and Other Relevant Results: No imaging studies documented in the civil design technician. Medical Decision Making: Summary Statement: 79-year-old male presenting with confusion, weakness, and possible GI bleeding, found to have critical lab abnormalities including severe leukocytosis, anemia, thrombocytopenia, acute kidney injury, and elevated troponin, consistent with a hypercoagulable state, likely hematologic malignancy, and multi-organ dysfunction. Problem List: 1) Severe leukocytosis with lymphocytosis, likely hematologic malignancy 2) Severe anemia and thrombocytopenia 3) Acute kidney injury 4) Myocardial injury 5) Suspected GI bleeding 6) Altered mental status Differential Diagnosis: For leukocytosis and cytopenias: Acute leukemia, lymphoma with leukemic phase, severe sepsis. For altered mental status: Hypoperfusion due to anemia, uremia, septic encephalopathy, intracranial hemorrhage given thrombocytopenia. For GI bleeding: Thrombocytopenia-induced spontaneous bleeding, ulcers, malignancy, angiodysplasia. ED Course: Patient received IV fluid resuscitation. Broad-spectrum antibiotics (vancomycin and cefepime) were administered. Blood product transfusions were initiated with 2 units of packed red blood cells and platelets. Patient was stabilized for admission to the hospital for further management of suspected hematologic malignancy with associated complications. Assessment and Plan: 1. Severe Leukocytosis with Lymphocytosis (WBC 81,000) - Highly suspicious for acute leukemia or lymphoma with leukemic phase - Urgent hematology consultation - Peripheral blood smear and flow cytometry - Bone marrow biopsy to be arranged after admission 2. Severe Anemia (Hgb 4 g/dL) and Thrombocytopenia (Plt 8,000/?L) - Transfusion of 2 units packed red blood cells initiated in ED - Platelet transfusion initiated in ED - Monitor for transfusion reactions - Serial CBC monitoring 3. Acute Kidney Injury (Cr 1.8 mg/dL) - IV fluid resuscitation - Monitor urine output - Avoid nephrotoxic medications - Serial renal function tests 4. Myocardial Injury (Troponin 2,185 ng/L) - Likely secondary to severe anemia and demand ischemia - Cardiac monitoring - Serial troponin measurements (noted to be trending down) - Cardiology consultation after admission 5. Suspected GI Bleeding - NPO status - Serial hemoglobin monitoring - Gastroenterology consultation for possible endoscopy after stabilization 6. Altered Mental Status - Likely multifactorial due to severe anemia, possible sepsis, and metabolic derangements - Frequent neurological checks - Improve underlying conditions 7. Disposition: Admission to Hematology/Oncology service or ICU depending on bed availability and patient stability Additional Notes: Patient requires urgent hematology/oncology consultation and ICU-level care. 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 Billing Information: ICD-10: D72.829 - Elevated white blood cell count, unspecified ICD-10: D64.9 - Anemia, unspecified ICD-10: D69.6 - Thrombocytopenia, unspecified ICD-10: N17.9 - Acute kidney failure, unspecified ICD-10: I21.4 - Non-ST elevation myocardial infarction ICD-10: K92.1 - Melena ICD-10: R41.0 - Disorientation, unspecified Critical Care Note Critical Care Time?: Yes (35 min-critical care time only) Critical care comment: Total critical care time: Approximately 36 minutes Due to a high probability of clinically significant, life threatening deterioration, the patient required my highest level of preparedness to intervene emergently and I personally spent this critical care time directly and personally managing the patient. This critical care time included obtaining a history; examining the patient; pulse oximetry; ordering and review of studies; arranging urgent treatment with development of a management plan; evaluation of patient's response to treatment; frequent reassessment; and, discussions with other providers. This critical care time was performed to assess and manage the high probability of imminent, life-threatening deterioration that could result in multi-organ failure. It was exclusive of separately billable procedures and treating other patients. Stability Stability form required: No Heart Score Heart Score: Heart Score Response (Comments) Value History Slightly Suspicious 0 EKG Repolarization Disturb 1 Age >65 2 Risk Factors 1 or 2 risk factors 1 Troponin >3 x's Normal limit 2 Total 6 MYESHA ABBASI MD Feb 04, 2025 20:56
[2025-02-04 21:25] LABS: Band Neutrophils % (manual) 1; Monocytes % (manual) 4 (0-12)
[2025-02-04 21:26] LABS: Lymphocytes % (manual) 83 (10.0-50.0); Platelet Estimate Markedly Decreased; Reactive Lymphocytes 5
[2025-02-04 21:27] LABS: Macrocytosis Moderate
[2025-02-04 21:28] LABS: Anisocytosis Slight; Ovalocytes FEW
[2025-02-04 21:29] LABS: Blast Cells 4
[2025-02-04 22:25] LABS: INR 2.32 (0.9-1.15); Prothrombin Time 23.1 sec (9.3-11.8)
[2025-02-04 22:26] LABS: Partial Thromboplastin Time 26.8 SEC (24.5-34.5)
[2025-02-04 22:37] LABS: Urine Bacteria FEW /hpf (None Seen); Urine Blood Negative /uL (Negative); Urine Clarity Clear (Clear); Urine Color Light-Yellow (Yellow); Urine Protein, UAD Negative (Negative); Urine Specific Gravity 1.042 (1.001-1.035); Urine Squamous Epithelial Cell None Seen /hpf (<5); Urine Urobilinogen Normal (Negative); Urine WBC < 1 /HPF (0-3); Urine pH 5.5 (5.0-9.0)
[2025-02-04 22:52] LABS: Amphetamine Screen, Urine Neg (NEGATIVE); Barbiturate Scree,Urine Neg (NEGATIVE); Benzodiazephine Screen, Urine Neg (NEGATIVE); Cannabinoid Screen, Urine Neg (NEGATIVE); Cocaine Screen, Urine Neg (NEGATIVE); Opiate Scree,Urine Neg (NEGATIVE); Phencyclidine Screen, Urine Neg (NEGATIVE)
[2025-02-04 23:27] VITALS: BP 125/56; PULSE 82; RESP 15; TEMP 97.4
--- NOTE | 2025-02-04 23:28 | DVH ---
BILATERAL LOWER EXTREMITY ARTERIAL DUPLEX ULTRASOUND STUDY: REASON FOR EXAM: Peripheral arterial disease. TECHNIQUE: The full lengths of the arterial segments were evaluated with color-flow Doppler ultrasoun d. Suspected abnormalities were evaluated with tian scale ultrasound. [employer] Consultant spectral Doppler waveforms, with velocity measurements were obtained. Spectral waveforms with velocity measurements w ere obtained 2 to 4 cm central to any areas of significant stenosis. Common femoral, superficial femo ral, popliteal, posterior tibial and dorsal pedal arteries were evaluated. FINDINGS: Right: There is diffuse atherosclerotic plaque throughout the right lower extremity. The common femor al artery waveform is multiphasic with a brisk upstroke. The superficial femoral and popliteal arteri es are patent with multiphasic waveforms. The posterior tibial and dorsal pedal arteries are patent w ith monophasic waveforms. Left: There is diffuse atherosclerotic plaque throughout the left lower extremity. The common femora l artery waveform is multiphasic with a brisk upstroke. The superficial femoral and popliteal arterie s are patent with multiphasic waveforms. The posterior tibial artery is patent with high velocity mon ophasic waveform. The dorsal pedal artery is patent with tardus parvus monophasic waveforms. IMPRESSION: No hemodynamically significant stenosis in the right lower extremity. Tardus parvus monophasic flow in the left dorsal pedal artery suggestive of nearby stenosis that is n ot visualized.
[2025-02-04 23:50] VITALS: BP 123/54; PULSE 71; RESP 14; TEMP 98.1
[2025-02-05 00:50] VITALS: BP 136/78; PULSE 71; RESP 19; TEMP 98
[2025-02-05 01:12] VITALS: BP 132/65; PULSE 68; RESP 14; TEMP 98
[2025-02-05 01:32] VITALS: BP 136/63; PULSE 72; RESP 14; TEMP 98.4; O2SAT 100
[2025-02-05 06:47] LABS: % Iron Saturation 89.1 % (20-55)
--- NOTE | 2025-02-05 10:44 | ECG ---
[facility] Test Date: 2025-02-04 Test Time: 15:03:14 Pat Name: DARREL JOHNSON Department: ED Room: Gender: M Machine I Coremaker: GV : [id number] Requested By: LEW NELSON Order Number: [id number] Reading MD: Jabier Graves Measurements Intervals [place] Rate: 77 P: 27 MT: 145 QRS: -25 QRSD: 94 T: 110 QT: 429 QTc: 486 Interpretive Statements Sinus rhythm Borderline left axis deviation Probable anterior infarct, age indeterminate Electronically Signed On 02-05-2025 17:41:42 PDT by Jabier Graves Please click the below link to view image of tracing.
[2025-02-06 11:37] LABS: Folate (Folic Acid) 7.61 ng/mL (>5.38); Free T4 (Free Thyroxine) 0.96 ng/dL (0.89-1.76)
== END 2025-02-05 02:00 | disposition short-term general hospital (02) ==
LOC: EDBD 14:55 → ER 14:55
DX: N17.9 Acute kidney failure, unspecified (principal); D68.59 Other primary thrombophilia; D72.820 Lymphocytosis (symptomatic); D64.9 Anemia, unspecified; D69.6 Thrombocytopenia, unspecified; E86.0 Dehydration; I11.0 Hypertensive heart disease with heart failure; I50.30 Unspecified diastolic (congestive) heart failure; K92.2 Gastrointestinal hemorrhage, unspecified; Z79.899 Other long term (current) drug therapy; Z90.5 Acquired absence of kidney
CPT/HCPCS: 36415; 36430; 70450; 70496; 70498; 71045; 80053; 80307; 81001; 82607; 82746; 82947; 83540; 83550; 83605; 83735; 83880; 84439; 84443; 84484; 85007; 85027; 85045; 85610; 85730; 86850; 86900; 86901; 86920; 87040; 93005; 93925; 96365; 96367; 99291; J0692; J3370; J7030; P9016; Q9967